=== PATIENT | male | born 1985 | race Caucasian/White ===

== ENCOUNTER 2016-12-29 13:08 | Emergency (ER) | payer SELFPAY | END 2016-12-29 13:41 | disposition home or self-care (01) | LOC: NAV ERS 13:08 | DX: S00.83XA Contusion of other part of head, initial encounter (principal); S00.432A Contusion of left ear, initial encounter; S20.411A Abrasion of right back wall of thorax, initial encounter; F17.220 Nicotine dependence, chewing tobacco, uncomplicated; V89.2XXA Person injured in unspecified motor-vehicle accident, traffic, initial encounter | CPT/HCPCS: 99283 ==

== ENCOUNTER 2017-01-23 12:42 | Outpatient (CLI) | payer BC ==
--- NOTE | 2017-01-24 07:35 | RAD ---
THREE VIEWS RIGHT HAND: HISTORY: Right hand pain for 3 weeks. FINDINGS: AP, lateral, and oblique views right hand are obtained. The right hand is unremarkable. No evidence of right hand fractures, subluxations, or bony lesions seen. IMPRESSION: Normal 3 views right hand. POS: [facility]
== END 2017-01-23 12:43 | disposition home or self-care (01) ==
LOC: NAV RAD 12:42
PROVIDERS: ATTEND Family Medicine
DX: M79.641 Pain in right hand (principal)

== ENCOUNTER 2024-10-04 18:13 | Emergency (ER) | payer BC, SELFPAY ==
[2024-10-04 19:09] LABS: Hematocrit 47.4 % (42.0-52.0); Hemoglobin 14.7 g/dL (14.0-18.0); Mean Corpuscular HGB CONC 31.1 g/dL (32.0-36.0); Mean Corpuscular Volume 80.6 fl (78.0-98.0); Mean Platelet Volume 7.9 fL (7.4-10.4); Platelet Count 275 10x3/uL (130-400); RBC Distribution Width 11.6 % (11.5-14.5); Red Blood Cell (RBC) Count 5.88 mill/uL (4.70-6.10); White Blood Cell (WBC) Count 8.6 10x3/uL (4.8-10.8)
[2024-10-04 19:20] LABS: ALT (SGPT) 48 U/L (Less than 45); AST (SGOT) 32 U/L (11-34); Albumin 4.3 g/dL (3.1-4.5); Alkaline Phosphatase 74 U/L (40-110); Anion Gap 13 mmol/L (10-20); BUN (Urea Nitrogen) 9 mg/dL (8.9-20.6); Bilirubin, Total 0.6 mg/dL (0.3-1.2); Calc. Creatinine Clearance 0 mL/min (70-130); Calcium 9.6 mg/dL (7.8-10.44); Carbon Dioxide 23 mmol/L (22-29); Chloride 107 mmol/L (98-107); Estimated GFR 114; Globulin 3.1 g/dL (2.4-3.5); Glucose 113 mg/dL (70-105); Lipase 43 U/L (8-78); Potassium 3.7 mmol/L (3.5-5.1); Protein, Total 7.4 g/dL (6.0-8.3); Sodium 139 mmol/L (136-145)
[2024-10-04 19:22] LABS: Troponin I Less than 0.010 ng/mL (< 0.028)
[2024-10-04 20:03] LABS: MDiff Complete? YES
[2024-10-04 21:58] LABS: Band 1 % (5-11); Eosinophils 6 % (0-10); Lymphocytes 45 % (21-51); Monocytes 1 % (0-10); Neutrophil 41 % (42-75); Reactive Lymphocytes 6 % (0-10)
[2024-10-04 22:01] LABS: RBC Morph Comment Within Normal Limits
[2024-10-04 22:02] LABS: Platelet Adequacy Comment Appears Adequate
== END 2024-10-04 20:20 | disposition home or self-care (01) ==
LOC: NAV ERS 18:13
DX: R07.89 Other chest pain (principal); R14.0 Abdominal distension (gaseous); F17.220 Nicotine dependence, chewing tobacco, uncomplicated
CPT/HCPCS: 80053; 83690; 84443; 84484; 85025; 93005; 99285